=== PATIENT | female | born 1990 | race Hispanic/Latino ===

== ENCOUNTER → 2023-07-10 06:52 | Outpatient (REF) | payer OTHER, SELFPAY ==
[2023-07-10 08:12] LABS: ALT (SGPT) 19 U/L (0-35); AST (SGOT) 21 U/L (14-36); Albumin 4.3 g/dl (3.5-5.0); Alkaline Phosphatase 68 U/L (38-126); Blood Urea Nitrogen 8 mg/dl (7-17); Carbon Dioxide 24 mmol/L (22-30); Chloride 107 mmol/L (98-107); Glucose 91 mg/dl (70-99); HDL Cholesterol 52 mg/dl; Potassium 3.9 mmol/L (3.5-5.1); Sodium 138 mmol/L (135-145); Total Bilirubin 0.7 mg/dl (0.2-1.3); Total Protein 7.6 g/dl (6.3-8.2); Triglyceride 97 mg/dl (10-149); Very Low Density Lipoprotein 19 mg/dl (0-30); eGFR > 60.00
[2023-07-10 08:23] LABS: Vitamin D, 25-OH*** 30.8 ng/mL (30-80)
[2023-07-10 08:28] LABS: LDL Cholesterol, Calculated 314 mg/dl; Total Cholesterol 385 mg/dl (50-199)
[2023-07-10 08:56] LABS: Glycohemoglobin (HgbA1c) 5.8 % (4.0-5.6)
== END ==
LOC: REG 06:52
PROVIDERS: ATTENDING PHYSICIAN Nurse Practitioner Acute Care
DX: E78.2 Mixed hyperlipidemia (principal); E55.9 Vitamin D deficiency, unspecified; R73.03 Prediabetes
CPT/HCPCS: 36415; 80053; 80061; 82306; 83036

== ENCOUNTER → 2023-08-27 09:28 | Outpatient (REF) | payer OTHER, SELFPAY ==
[2023-08-27 11:08] LABS: ALT (SGPT) 26 U/L (0-35); AST (SGOT) 24 U/L (14-36); Albumin 4.4 g/dl (3.5-5.0); Alkaline Phosphatase 69 U/L (38-126); Blood Urea Nitrogen 9 mg/dl (7-17); Calcium 9.1 mg/dl (8.4-10.2); Carbon Dioxide 27 mmol/L (22-30); Chloride 101 mmol/L (98-107); Glucose 98 mg/dl (70-99); Potassium 4.1 mmol/L (3.5-5.1); Sodium 137 mmol/L (135-145); Total Bilirubin 0.7 mg/dl (0.2-1.3); Total Protein 7.5 g/dl (6.3-8.2); eGFR > 60.00
== END ==
LOC: REG 09:28
PROVIDERS: ATTENDING PHYSICIAN Nurse Practitioner Acute Care
DX: E78.00 Pure hypercholesterolemia, unspecified (principal)
CPT/HCPCS: 36415; 80053

== ENCOUNTER → 2023-11-27 06:47 | Outpatient (REF) | payer OTHER, SELFPAY ==
[2023-11-27 10:07] LABS: Glycohemoglobin (HgbA1c) 5.6 % (4.0-5.6)
[2023-11-27 10:22] LABS: ALT (SGPT) 19 U/L (0-35); AST (SGOT) 23 U/L (14-36); Albumin 4.5 g/dl (3.5-5.0); Alkaline Phosphatase 73 U/L (38-126); Blood Urea Nitrogen 9 mg/dl (7-17); Calcium 9.3 mg/dl (8.4-10.2); Carbon Dioxide 22 mmol/L (22-30); Chloride 103 mmol/L (98-107); Glucose 87 mg/dl (70-99); HDL Cholesterol 60 mg/dl; LDL Cholesterol, Calculated 146 mg/dl; Potassium 4.3 mmol/L (3.5-5.1); Sodium 136 mmol/L (135-145); Total Bilirubin 0.9 mg/dl (0.2-1.3); Total Cholesterol 219 mg/dl (50-199); Total Protein 7.6 g/dl (6.3-8.2); Triglyceride 66 mg/dl (10-149); Very Low Density Lipoprotein 13 mg/dl (0-30); eGFR > 60.00
[2023-11-27 10:34] LABS: Vitamin D, 25-OH*** 32.5 ng/mL (30-80)
== END ==
LOC: CLINIC 06:47
PROVIDERS: ATTENDING PHYSICIAN Nurse Practitioner Adult Health
DX: E78.00 Pure hypercholesterolemia, unspecified (principal); R73.03 Prediabetes; E55.9 Vitamin D deficiency, unspecified
CPT/HCPCS: 36415; 80053; 80061; 82306; 83036